=== PATIENT | female | born 1990 | race African-American/Black ===

== ENCOUNTER 2020-10-25 19:59 | Emergency (ER) | payer BC, OTHER ==
[~2020-10-25] VITALS: Ht 172.7 cm; Wt 100.0 kg
[~2020-10-25 19:59] MED LIST: BACTRIM DS1 TAB PO; NO HOME MEDS; ULTRAM50 M1 PO
[2020-10-25] MEDS ORDERED: ANUCORT-HC25 MG RE (20:49)
[2020-10-25] MEDS ORDERED: COLACE100 MG PO (20:49)
[2020-10-25 20:52] VITALS: BP 120/78
== END 2020-10-25 20:59 | disposition home or self-care (01) | DRG 395 ==
LOC: ED 19:59
DX: K64.4 Residual hemorrhoidal skin tags (principal)

== ENCOUNTER 2021-12-04 18:16 | Emergency (ER) | payer BC, OTHER ==
[~2021-12-04] VITALS: Ht 172.7 cm; Wt 11.2 kg
[2021-12-04] VITALS (11 sets, daily range): BP systolic 112–140; BP diastolic 60–98
[~2021-12-04 18:16] MED LIST changes: +ANUCORT-HC25 MG RE; +COLACE100 MG PO
[2021-12-04] MEDS ORDERED: PAXLOVID PO (21:26)
== END 2021-12-04 22:00 | disposition home or self-care (01) | DRG 179 ==
LOC: ED 18:16
DX: U07.1 COVID-19 (principal); R50.9 Fever, unspecified; J02.9 Acute pharyngitis, unspecified; R05.9 Cough, unspecified; R51.9 Headache, unspecified

== ENCOUNTER 2022-03-24 22:41 | Emergency (ER) | payer BC, OTHER ==
[~2022-03-24] VITALS: Ht 172.7 cm; Wt 111.0 kg
[~2022-03-24 22:41] MED LIST changes: +PAXLOVID PO
[2022-03-24 23:06] VITALS: BP 137/76
[2022-03-24 23:15] VITALS: BP 123/87
[2022-03-24 23:30] VITALS: BP 127/78
[2022-03-24 23:46] VITALS: BP 125/92
[2022-03-25] VITALS: BP 141/99
[2022-03-25 00:17] VITALS: BP 103/67
[2022-03-25 00:30] VITALS: BP 112/73
[2022-03-25] MEDS ORDERED: CLARITIN10 M2 PO (00:41)
[2022-03-25] MEDS ORDERED: AMOXICILLIN500 MG PO (00:41)
[2022-03-25 00:45] VITALS: BP 116/65
[2022-03-25 00:55] VITALS: BP 116/65
== END 2022-03-25 01:29 | disposition home or self-care (01) | DRG 153 ==
LOC: ED 22:41
DX: J02.9 Acute pharyngitis, unspecified (principal)

== ENCOUNTER 2022-07-02 08:30 | Emergency (ER) | payer BC, OTHER ==
[~2022-07-02] VITALS: Ht 172.7 cm; Wt 114.0 kg
[~2022-07-02 08:30] MED LIST changes: +AMOXICILLIN500 MG PO; +CLARITIN10 M2 PO
[2022-07-02 08:41] VITALS: BP 119/69
[2022-07-02] MEDS ORDERED: BACTRIM DS1 TAB PO (08:52)
[2022-07-02 08:58] VITALS: BP 119/69
[2022-07-02] MEDS ORDERED: CLEOCIN300 MG PO (09:26)
== END 2022-07-02 09:24 | disposition home or self-care (01) | DRG 581 ==
LOC: ED 08:30
PROC: 0H99XZZ Drainage of Perineum Skin, External Approach (ICD-10-PCS; principal; 2022-07-02)
DX: L02.215 Cutaneous abscess of perineum (principal)

== ENCOUNTER 2022-10-18 23:18 | Emergency (ER) | payer BC, OTHER ==
[~2022-10-18] VITALS: Ht 172.7 cm; Wt 112.0 kg
[~2022-10-18 23:18] MED LIST changes: +CLEOCIN300 MG PO
[2022-10-18 23:33] VITALS: BP 128/78
[2022-10-18 23:46] VITALS: BP 113/69
[2022-10-19 00:01] VITALS: BP 109/81
[2022-10-19 00:10] VITALS: BP 109/81
== END 2022-10-19 00:20 | disposition home or self-care (01) | DRG 951 ==
LOC: ED 23:18
DX: Z34.83 Encounter for supervision of other normal pregnancy, third trimester (principal); Z3A.37 37 weeks gestation of pregnancy